=== PATIENT | female | born 1985 | race American Indian/Alaskan Native ===

== ENCOUNTER 2018-06-07 11:01 | Observation (INO) | payer MEDICAID ==
[2018-06-07] MEDS: D5LR 1,000 ML IV SCH ×4 (10:35→19:45)
[2018-06-07] MEDS ORDERED: ZOFRAN IV PRN (11:47)
--- NOTE | 2018-06-07 13:12 | History and Physical Report ---
History of Present Illness Date of examination: 06/07/18 Chief complaint: Persistent nausea, vomiting and shortness of breath History of present illness: 33 YOBF EGA 11w who presents with persistent nausea with vomiting "unable to keep anything down" and weight lost. Patient brief course has been complicated episodes of shortness of breath with near syncopal speel. on 2017 patient had a cardilogy referral visit with Dr Felix. Patient had ECJO wnl but Dr Felix was concerned about her dyspnea. Patient in office today with the above symptoms Past History Past Medical History: other (Bronchitis) Past Surgical History: Other (D&C (2007)) Social history: Medications and Allergies Allergies Allergy/AdvReac Type Severity Reaction Status Date / Time No Known Allergies Allergy Unverified 06/07/18 11:17 Active Meds: Active Medications Dextrose/Lactated Ringer's (D5lr) 1,000 mls @ 500 mls/hr IV DIRECT MOMO Stop: 06/08/18 13:59 Dextrose/Lactated Ringer's (D5lr) 1,000 mls @ 150 mls/hr IV DIRECT MOMO Metoclopramide HCl (Reglan) 10 mg IV Q6H MOMO Multivitamins/Iron/Calcium ( Vitamin) 1 each PO QDAY MOMO Ondansetron HCl (Zofran) 4 mg IV Q6H PRN PRN Reason: N/V unrelieved by Reglan Promethazine HCl (Phenergan) 25 mg RI Q6H MOMO Review of Systems Constitutional: weight loss, anorexia, fatigue, weakness, poor appetite Ears, nose, mouth and throat: deferred Respiratory: shortness of breath, dyspnea on exertion Gastrointestinal: no abdominal pain Psychiatric: anxiety Exam - Constitutional General appearance: Present: mild distress, well-nourished - Respiratory Respiratory effort: normal - Cardiovascular Rhythm: regular - Abdominal General gastrointestinal: Present: soft, non-tender Female genitourinary: Present: deferred - Rectal Rectal Exam: deferred - Integumentary Integumentary: Present: clear, warm, dry - Musculoskeletal Musculoskeletal: strength equal bilaterally - Psychiatric Psychiatric: appropriate mood/affect Assessment and Plan - Patient Problems (1) Hyperemesis affecting , antepartum Status: Acute Plan to address problem: Will admit and follow hyperemesis pathwa (2) Dyspnea Status: Acute Qualifiers: Dyspnea type: dyspnea on exertion Qualified Code(s): R06.09 - Other forms of dyspnea Plan to address problem: Patient states episodes are unpredictable. She has been on an inhaler in the past. maral obtain a pulmonary consult
[2018-06-07 16:59] LABS: Bilirubin,Urine NEG (Negative); Blood,Urine NEG (Negative); Color,Urine Straw (Yellow); Protein,Urine <15 mg/dL mg/dL (Negative); Urobilinogen,Urine < 2.0 mg/dL (<2.0)
[2018-06-07 17:00] LABS: Bacteria,Urine 1+ /HPF (Negative); WBC,Urine < 1.0 /HPF (0.0-6.0)
--- NOTE | 2018-06-07 18:19 | Consultation ---
History of Present Illness Consult date: 06/07/18 Requesting physician: LEON SHABAZZ Past History Past Medical History: other (Bronchitis) Past Surgical History: Other (D&C (2007)) Social history: Medications and Allergies Allergies Allergy/AdvReac Type Severity Reaction Status Date / Time No Known Allergies Allergy Unverified 06/07/18 11:17 Active Meds: Active Medications Dextrose/Lactated Ringer's (D5lr) 1,000 mls @ 500 mls/hr IV DIRECT MOMO Stop: 06/08/18 13:59 Dextrose/Lactated Ringer's (D5lr) 1,000 mls @ 150 mls/hr IV DIRECT MOMO Metoclopramide HCl (Reglan) 10 mg IV Q6H MOMO Multivitamins/Iron/Calcium ( Vitamin) 1 each PO QDAY MOMO Ondansetron HCl (Zofran) 4 mg IV Q6H PRN PRN Reason: N/V unrelieved by Reglan Promethazine HCl (Phenergan) 25 mg IA Q6H MOMO Physical Examination Vital signs: Vital Signs Temp Pulse Resp BP 98.6 F 85 20 108/65 06/07/18 16:00 06/07/18 16:00 06/07/18 16:00 06/07/18 16:00 Assessment and Plan 33 y/o female, 11 weeks admitted with hyperemesis and intermittent episodes of shortness of breath 1. Check Thyroid studies 2. Venous duplex bilaterally 3. Check LFT's and CBC 4. Repeat 2 view CXR 5. Most likely this is recurrent asthma as patient had it as a child and has sibling with it. Will start Inhaled corticosteroid only for now. May need PRN rescue inhaler at discharge.
[2018-06-07] MEDS: REGLAN IV SCH (18:30)
[2018-06-07] MEDS: PHENERGAN PR SCH (18:30)
[2018-06-07 19:09] LABS: Basophils % (Auto) 0.2 % (0.0-1.8); Eosinophils # (Auto) 0.1 K/mm3 (0.0-0.4); Eosinophils % (Auto) 1.3 % (0.0-4.3); Hematocrit 31.9 % (30.3-42.9); Hemoglobin 10.5 gm/dl (10.1-14.3); Lymphocytes # (Auto) 1.6 K/mm3 (1.2-5.4); Lymphocytes % (Auto) 21.8 % (13.4-35.0); Mean Corpuscular HGB Conc 33 % (30-34); Mean Corpuscular Hemoglobin 28 pg (28-32); Mean Corpuscular Volume 84 fl (79-97); Monocytes # (Auto) 0.6 K/mm3 (0.0-0.8); Monocytes % (Auto) 8.3 % (0.0-7.3); Platelet Count 285 K/mm3 (140-440); Red Blood Count 3.78 M/mm3 (3.65-5.03); Red Cell Distribution Width 13.8 % (13.2-15.2)
[2018-06-07 19:23] LABS: Alanine Aminotransferase 7 units/L (7-56); Albumin 3.4 g/dL (3.9-5)
[2018-06-07 19:44] LABS: Bilirubin,Direct < 0.2 mg/dL (0-0.2)
[2018-06-07 19:53] LABS: BUN/Creatinine Ratio 16; Blood Urea Nitrogen 8 mg/dL (7-17); Calcium 8.9 mg/dL (8.4-10.2); Hemolysis Index 2
[2018-06-07] MEDS: PULMICORT IH SCH (20:01)
[2018-06-07] MEDS ORDERED: TYLENOL PO PRN (22:57)
[2018-06-08] MEDS: REGLAN IV SCH ×3 (02:49→15:00)
[2018-06-08] MEDS: PHENERGAN PR SCH ×3 (02:49→15:00)
[2018-06-08] MEDS: D5LR 1,000 ML IV SCH ×2 (04:00→13:20)
--- NOTE | 2018-06-08 07:58 | Ultrasound Report ---
ULTRASOUND OB LESS THAN 14 WEEKS FETUS History: Hyperemesis. Technique: Transabdominal ultrasound with B-mode Doppler. Findings: No comparison at this facility. The uterus measures 13.2 x 8.3 x 9.6 cm. No uterine fibroids are detected. An intrauterine with heart rate measuring 174 beats per minute is identified. Estimated age on ultrasound is 11 weeks 6 days. Estimated due date 12/21/18. The placenta is forming posteriorly. No abnormality is detected. Qualitative amniotic fluid appears in within normal limits. The cervix is obscured. The right ovary is unremarkable measuring 1.8 x 1.1 x 1.5 cm. The left ovary measures 3.3 x 2.4 x 2.3 cm and contains a 1.2 cm cyst. No pelvic fluid collection is identified. Impression: Viable, single intrauterine as outlined above. No abnormality is demonstrated. 1.2 cm left ovarian cyst.
--- NOTE | 2018-06-08 07:59 | Progress Note ---
Subjective Date of service: 06/08/18 (pt sleeping soundly) Principal diagnosis: SOB;Hyperemisis; IUP @ 11 weeks Interval history: Pt sleeping soundly VSS No episodes of N&V overnight. Pt is taking diet Orders placed by Pulmonary Continue POC as ordered. aware of pt and status Objective - Constitutional Vitals: Vital Signs - 12hr 06/07/18 06/07/18 06/07/18 20:01 20:39 23:09 Temperature 99 F Pulse Rate Respiratory 18 18 Rate Respiratory 18 Rate [Bilateral ] Blood Pressure 108/61 [Left] O2 Sat by Pulse Oximetry 06/08/18 06/08/18 00:15 04:20 Temperature 98.6 F 98.3 F Pulse Rate 81 76 Respiratory 20 20 Rate Respiratory Rate [Bilateral ] Blood Pressure 103/54 101/65 [Left] O2 Sat by Pulse 98 97 Oximetry - Labs CBC & Chem 7: 06/07/18 18:18 06/07/18 18:18 Labs: Abnormal lab results 06/07/18 06/07/18 06/07/18 Range/Units 18:18 18:18 18:18 Mcdonald % (Auto) 8.3 H (0.0-7.3) % Sodium 136 L (137-145) mmol/L Creatinine 0.5 L (0.7-1.2) mg/dL Albumin 3.4 L (3.9-5) g/dL
[2018-06-08] MEDS: PULMICORT IH SCH (09:00)
[2018-06-08] MEDS ORDERED: PRENATAL VITAMIN PO SCH (10:00)
--- NOTE | 2018-06-08 12:22 | Progress Note ---
Assessment and Plan 33 y/o female, 11 weeks admitted with hyperemesis and intermittent episodes of shortness of breath 1. Labs normal 2. No DVT 3. Needs a script for pulmicort Flexhaler 180mcg 2 puffs BID 4. Needs a script for proair 90mcg, 1-2 puffs q4-6 hours PRN cough, shortness of breath 5. I will arrange follow up in our office 6. No objection to discharge from a pulmonary standpoint. Subjective Date of service: 06/08/18 Principal diagnosis: SOB;Hyperemisis; IUP @ 11 weeks Interval history: No acute events. SOB is better with pulmicort therapy. No evidence of dVT. Radiology would not do CXR without written consent signed by myself and the patient, even though I ordered the imaging my self and had already discussed with the patient. Objective Vital Signs - 12hr 06/08/18 06/08/18 04:20 08:30 Temperature 98.3 F 98.4 F Pulse Rate 76 89 Respiratory 20 20 Rate Blood Pressure 101/65 104/55 [Left] O2 Sat by Pulse 97 Oximetry CBC and BMP: 06/07/18 18:18 06/07/18 18:18 Abnormal lab findings: Abnormal Labs 06/07/18 06/07/18 06/07/18 18:18 18:18 18:18 Griggs % (Auto) 8.3 H Sodium 136 L Creatinine 0.5 L Albumin 3.4 L
[2018-06-08 17:35] VITALS: BP 102/57
--- NOTE | 2018-06-08 20:48 | Discharge Summary ---
Providers - Providers Date of Admission: 06/07/18 14:26 Date of discharge: 06/08/18 (pt agrees to d/c) Attending physician: LEON SHABAZZ 06/07/18 11:49 Consult to Physician [CONS] Routine Comment: Consulting Provider: EVONNE NG Physician Instructions: Reason For Exam: Persistant shortness of breath Primary care physician: LEON SHABAZZ Hospitalization Reason for admission: Cough, SOb, N&V Condition: Good Pertinent studies: CXR; vascular studies Hospital course: Resolution of Asthmatic episode and N&V of early Disposition: DC-01 TO HOME OR SELFCARE - Discharge Diagnoses (1) Dyspnea Status: Acute Qualifiers: Dyspnea type: shortness of breath Qualified Code(s): R06.02 - Shortness of breath; R06.00 - Dyspnea, unspecified; R06.01 - Orthopnea Comment: pt will call and schedule appointment with [facility] (2) Hyperemesis affecting , antepartum Status: Acute Comment: pt will f/u in OB office Thursday06/16/18 @ 1000 Core Measure Documentation - Palliative Care Palliative Care/ Comfort Measures: Not Applicable - Core Measures Any of the following diagnoses?: none - VTE Discharge Requirements Deep Vein Thrombosis/Pulmonary Embolism Present on Admission: No Has pt received <5 days of overlap therapy or INR<2.0: No Anticoagulant overlap therapy prescribed at discharge: No Contraindication No Overlap Therapy order at DC: Not Indicated - Acute SD Discharge Requirements Aspirin at discharge: No Reason for no aspirin on DC: Medical contraindication MIGUEL/ARB for LVSD if EF <40%: Not Applicable Reason for no MIGUEL/ARB: Medical contraindication Beta gentry at discharge: No Reason for no beta gentry on DC: Medical contraindication Statin for LDL = or >100 mg/dl on DC: Not Applicable Reason for no statin on DC: Medical contraindication - Heart Failure Discharge Requirements MIGUEL/ARB for LVSD if EF <40%: Not Applicable Reason for no MIGUEL/ARB: Medical contraindication Beta gentry at discharge: No Reason for no beta gentry on DC: Medical contraindication - Stroke Discharge Requirements Statin for LDL = or >70 mg/dl on DC: Not Applicable Reason for no statin on DC: Not Indicated Anticoag for atrial fib/atrial flutter: Not Applicable Reason for no anticoag for AF/F on DC: Not Indicated Antithrombotic for ischemic stroke: No Reason for no antithrombotic on DC: Not Indicated Exam - Constitutional Vitals: Temp Pulse Resp BP Pulse Ox 98.5 F 92 H 20 102/57 97 06/08/18 16:38 06/08/18 16:38 06/08/18 16:38 06/08/18 16:38 06/08/18 04:20 General appearance: Present: no acute distress, well-nourished - EENT Eyes: Present: PERRL ENT: hearing intact, clear oral mucosa - Neck Neck: Present: supple, normal ROM - Respiratory Respiratory effort: normal Respiratory: bilateral: CTA - Cardiovascular Heart Sounds: Present: S1 & S2. Absent: rub, click - Extremities Extremities: pulses symmetrical, No edema Peripheral Pulses: within normal limits - Abdominal General gastrointestinal: Present: deferred Female genitourinary: Present: deferred - Rectal Rectal Exam: deferred - Integumentary Integumentary: Present: clear, warm, dry - Musculoskeletal Musculoskeletal: gait normal, strength equal bilaterally - Psychiatric Psychiatric: appropriate mood/affect, intact judgment & insight - Neurologic Neurologic: CNII-XII intact, moves all extremities Plan Activity: advance as tolerated Weight Bearing Status: Non-Weight Bearing Diet: regular Special Instructions: no heavy lifting Follow up with: LEON SHABAZZ MD [Primary Care Provider] - 06/16/18 10:00 am (you have an appointment with [facility] on Thursday06-16-18 at 10:00AM Drink plenty of water, rest, limit outdoor activities Call with in obstetrical problems Please call office [phone] and follow up with them as instructed or with any asthma, difficulty breathing, shortness of breathe concerns) Prescriptions: Albuterol Sulfate [Proair Respiclick] 90 mcg IH Q4-6H PRN #1 [email or web address] PRN Reason: Cough Budesonide [Pulmicort Flexhaler] 2 inhalation IH BID #1 [email or web address]
--- NOTE | 2018-06-10 16:59 | Vascular Lab Report ---
LOWER EXTREMITY VENOUS DUPLEX: REASON FOR EXAM: Dyspnea. COMMENTS ON THE RIGHT: All veins visualized are freely compressible without evidence of internal echogenicity. Flow is spontaneous and phasic throughout. COMMENTS ON THE LEFT: All veins visualized are freely compressible without evidence of internal echogenicity. Flow is spontaneous and phasic throughout. IMPRESSION: No evidence of acute or chronic deep venous thrombosis in either lower extremity.
== END 2018-06-08 22:52 | disposition home or self-care (01) ==
LOC: 3A 11:01 → UNDOADMOB 11:01 → OB 14:26
PROVIDERS: ADMIT Obstetrics & Gynecology; ATTEND Obstetrics & Gynecology
DX: O21.0 Mild hyperemesis gravidarum (principal); O26.891 Other specified pregnancy related conditions, first trimester; R06.02 Shortness of breath; R53.1 Weakness; Z3A.11 11 weeks gestation of pregnancy
CPT/HCPCS: 36415; 76801; 80048; 80074; 81001; 84439; 84443; 85025; 93970; 96361; 96374; 96376; G0378; G0379; J2765; J7121